=== PATIENT | male | born 1990 | race African-American/Black ===

== ENCOUNTER 2018-02-14 10:56 | Emergency (ER) | payer SELFPAY ==
[~2018-02-14] VITALS: Wt 81.6 kg
[2018-02-14] MEDS ORDERED: Motrin,Rufen800 MG PO (11:23)
[2018-02-14] MEDS ORDERED: LEVOFLOXACIN500 MG PO (11:23)
== END 2018-02-14 11:43 | disposition home or self-care (01) ==
LOC: ED 10:56
DX: L02.214 Cutaneous abscess of groin (principal)